=== PATIENT | male | born 1985 | race Caucasian/White ===

== ENCOUNTER 2019-11-11 11:01 | Emergency (ER) | payer MEDICAID ==
[~2019-11-11] VITALS: Ht 172.7 cm; Wt 63.5 kg
[2019-11-11 11:01] VITALS: BP 112/70
--- NOTE | 2019-11-11 11:02 | NUR ---
ED Nurse Note: PT Brought in by RA Mary from street for possible overdose. pt admits to using fentanyl . 6mg Narcan given by EMS en route.
[2019-11-11] MEDS ORDERED: DiphenhydrAMINE 50mg/ml Inj IVP ONE (11:15)
[2019-11-11] MEDS ORDERED: LORazepam Inj 2mg/ml 1ml IV ONE (11:15)
[2019-11-11 11:39] LABS: BASOPHILS % (AUTO) 0.7 % (0.0-2.0); EOSINOPHILS % (AUTO) 1.2 % (0.0-3.0); HEMATOCRIT 41.5 % (42.0-52.0); HEMOGLOBIN 13.3 G/DL (14.2-18.0); LYMPHOCYTES % (AUTO) 17.6 % (20.0-45.0); MEAN CORPUSCULAR VOLUME 85 FL (80-99); MONOCYTES % (AUTO) 7.2 % (1.0-10.0); NEUTROPHILS % (AUTO) 73.3 % (45.0-75.0); PLATELET COUNT 271 K/UL (150-450); RED BLOOD COUNT 4.91 M/UL (4.70-6.10); RED CELL DISTRIBUTION WIDTH 12.9 % (11.6-14.8); WHITE BLOOD COUNT 12.1 K/UL (4.8-10.8)
--- NOTE | 2019-11-11 11:45 | NUR ---
ED Nurse Note: Repory given to MASHA Garcia. Endorsed plan of care.
[2019-11-11 12:07] LABS: ANION GAP 8 mmol/L (5-15); BLOOD UREA NITROGEN 16 mg/dL (7-18); CALCIUM 9.1 MG/DL (8.5-10.1); CARBON DIOXIDE 30 MMOL/L (21-32); CHLORIDE 102 MMOL/L (98-107); CREATININE 0.8 MG/DL (0.55-1.30); POTASSIUM 3.6 MMOL/L (3.5-5.1); SODIUM 140 MMOL/L (136-145)
[2019-11-11] MEDS ORDERED: Morphine Sulfate 2mg/ml Inj(IV/IM USE ONLY) IVP ONE (12:15)
--- NOTE | 2019-11-11 12:53 | NUR ---
ED Nurse Note: patient is still restless and unable to follow any commands or answer an questions at this time. notified to Dr. Collado.
--- NOTE | 2019-11-11 13:06 | NUR ---
ED Nurse Note: CALLED LAB TO FF UP WITH ALCOHOL BLOOD SERUM ORDER.
--- NOTE | 2019-11-11 14:22 | Emergency Room Report ---
History of Present Illness General Chief Complaint: Overdose Source: EMS Present Illness HPI Patient was brought in by paramedics They report that the patient was found on the street unresponsive pinpoint pupils and decreased respirations after 6 mg of Narcan Patient has awakened and became very agitated and aggressive Patient himself is not able to provide any input he does remain agitated Thrashing around the room and combative with the medical staff there was no reports of any blood or other trauma at the scene History of present illness remains limited as the patient is not able to provide history Allergies: Coded Allergies: No Known Allergies (Unverified , 11/11/19) Patient History Limited by: medical condition Past Medical History: see triage record Reviewed Nursing Documentation: PMH: Agreed; PSxH: Agreed Review of Systems All Other Systems: limited - Other than the ones mentioned in the history of present illness all others are reviewed however they do stay limited due to the patient's mental status Physical Exam Vital Signs Date Time Temp Pulse Resp B/P (MAP) Pulse Ox O2 Delivery O2 Flow Rate FiO2 11/11/19 11:01 112 18 Nasal Cannula 3.0 11/11/19 11:01 98.0 112/70 98 Sp02 EP Interpretation: reviewed, normal General Appearance: moderate distress - Agitated physically aggressive Head: normocephalic, atraumatic Eyes: bilateral eye PERRL, bilateral eye EOMI ENT: EOM grossly intact, normal pharynx Neck: supple Respiratory: lungs clear, no respiratory distress, no retraction Cardiovascular #1: tachycardia Gastrointestinal: non tender, soft Musculoskeletal: other - Patient does not follow commands however moving all extremities without focal deficit Neurologic: responsive - To physical and verbal stimuli patient does not follow commands at this time,, has appropriate airway intact appears extremely agitated Skin: other Lymphatic: no adenopathy Procedures Critical Care Time Critical Care Time 40 minutes for multiple repeat neurological exams initial combative presentation requiring restraints not including any procedural time Medical Decision Making ER Course Patient presents extremely agitated after Narcan dispensed by paramedics Patient is not able to provide appropriate history at this time requires aggressive IV hydration EKG and blood work initially are appropriate patient does show positive urine drug screen for multiple ingestions Patient required acute intervention in the emergency room at this time is pending further Medical evaluation Case signed out to my oncoming physician Labs Test 11/11/19 11:20 11/11/19 13:13 White Blood Count 12.1 K/UL (4.8-10.8) Red Blood Count 4.91 M/UL (4.70-6.10) Hemoglobin 13.3 G/DL (14.2-18.0) Hematocrit 41.5 % (42.0-52.0) Mean Corpuscular Volume 85 FL (80-99) Mean Corpuscular Hemoglobin 27.1 PG (27.0-31.0) Mean Corpuscular Hemoglobin Concent 32.0 G/DL (32.0-36.0) Red Cell Distribution Width 12.9 % (11.6-14.8) Platelet Count 271 K/UL (150-450) Mean Platelet Volume 6.6 FL (6.5-10.1) Neutrophils (%) (Auto) 73.3 % (45.0-75.0) Lymphocytes (%) (Auto) 17.6 % (20.0-45.0) Monocytes (%) (Auto) 7.2 % (1.0-10.0) Eosinophils (%) (Auto) 1.2 % (0.0-3.0) Basophils (%) (Auto) 0.7 % (0.0-2.0) Sodium Level 140 MMOL/L (136-145) Potassium Level 3.6 MMOL/L (3.5-5.1) Chloride Level 102 MMOL/L (98-107) Carbon Dioxide Level 30 MMOL/L (21-32) Anion Gap 8 mmol/L (5-15) Blood Urea Nitrogen 16 mg/dL (7-18) Creatinine 0.8 MG/DL (0.55-1.30) Estimat Glomerular Filtration Rate > 60 mL/min (>60) Glucose Level 80 MG/DL (74-106) Calcium Level 9.1 MG/DL (8.5-10.1) Serum Alcohol < 3 mg/dL Urine Opiates Screen Negative (NEGATIVE) Urine Barbiturates Screen Negative (NEGATIVE) Phencyclidine (PCP) Screen Negative (NEGATIVE) Urine Amphetamines Screen Positive (NEGATIVE) Urine Benzodiazepines Screen Positive (NEGATIVE) Urine Cocaine Screen Positive (NEGATIVE) Urine Marijuana (THC) Screen Negative (NEGATIVE) Rhythm Strip Diag. Results EP Interpretation: yes Rate: 88 Rhythm: NSR, no PVC's, no ectopy Last Vital Signs Date Time Temp Pulse Resp B/P (MAP) Pulse Ox O2 Delivery O2 Flow Rate FiO2 11/11/19 12:53 98.0 11/11/19 11:01 112 18 112/70 98 Nasal Cannula 3.0 Status: improved Referrals: NOT CHOSEN IPA/,REFERRING (PCP) Leo Collado DO Nov 11, 2019 14:22
[2019-11-11 14:55] VITALS: BP 103/64
--- NOTE | 2019-11-11 16:22 | Diagnostic Imaging Report ---
EXAM: XR Chest, 1 View CLINICAL HISTORY: SOB TECHNIQUE: Frontal view of the chest. COMPARISON: No relevant prior studies available. FINDINGS: Lungs: Accentuation of pulmonary markings. No consolidation. Pleural space: Unremarkable. No pneumothorax. Heart: Unremarkable. No cardiomegaly. Mediastinum: Unremarkable. Bones/joints: No acute fracture. IMPRESSION: Accentuation of pulmonary markings. No confluent consolidation.
[2019-11-11 17:37] VITALS: BP 114/82
--- NOTE | 2019-11-11 19:09 | NUR ---
HAND-OFF: Report given to Ibeth FLANAGAN.
--- NOTE | 2019-11-11 19:10 | NUR ---
ED Nurse Note: Report received from MASHA Garcia. Pt resting in bed, lethargic but awake. Pt reports his name is Ulises Crawley and claims he only took xanax prior to being brought to ED. Pt reports visiting a methadone clinic regularly.
[2019-11-11 19:20] VITALS: BP 117/79
--- NOTE | 2019-11-11 21:45 | NUR ---
ED Nurse Note: Pt aao x 4, able to provide self care. Pt was given food. Pt has steady gait. ERMD at bedside
[2019-11-11 22:05] VITALS: BP 105/75
[2019-11-11 22:53] VITALS: BP 117/79
--- NOTE | 2019-11-11 22:53 | NUR ---
ER DISCHARGE NOTE: Patient is cleared to be discharged per ERMD, pt is aox4, on room air, with stable vital signs. pt was given dc instructions, pt was able to verbalize understanding, pt id band and iv site removed without complications. pt is able to ambulate with steady gait. pt took all belongings. Pt given additional clothing, food, and drinks.
== END 2019-11-11 22:53 | disposition home or self-care (01) ==
LOC: EDBD 11:01 → EMR 12:36
DX: R45.1 Restlessness and agitation (principal); R00.0 Tachycardia, unspecified; R06.02 Shortness of breath
CPT/HCPCS: 36415; 71045; 80048; 80307; 85025; 93005; 96361; 96374; 96375; G0480; J1200; J2270; J7030; Z7502; 99291